=== PATIENT | female | born 1970 | race Caucasian/White ===

== ENCOUNTER 2017-05-28 16:59 | Emergency (ER) | payer OTHER, BC ==
[2017-05-28] MEDS ORDERED: HYDROmorphone 1 MG/ML Syringe IVPUSH ONE (17:58)
[2017-05-28] MEDS ORDERED: Sodium Chloride 0.9% 1,000 ML IV ONE (17:58)
[2017-05-28] MEDS ORDERED: Sodium Chloride 0.9% 10 ML Syringe FLUSH PRN (17:58)
[2017-05-28 18:33] LABS: CHLORIDE,CL 103 mmol/L (101-111); SODIUM,NA 140 mmol/L (135-145)
[2017-05-28] MEDS ORDERED: Gabapentin 300 MG Cap PO ONE (19:37)
[2017-05-28] MEDS ORDERED: Ibuprofen 600 MG Tab PO ONE (19:37)
[2017-05-28 19:48] VITALS: BP 115/67
--- NOTE | 2017-05-31 09:02 | EDM.PDOC ---
Scribed by Silvia Briones 05/28/17 [id number] for Mercedes Handy NP <Mercedes Handy - Last Filed: 05/28/17 18:52> ED HPI GENERAL MEDICAL PROBLEM - General Chief Complaint: Back Pain or Injury Stated Complaint: LOWER BACK SIDE Time Seen by Provider: 05/28/17 17:51 Source of Information: Reports: Patient, RN, RN Notes Reviewed History Limitations: Reports: No Limitations - History of Present Illness INITIAL COMMENTS - FREE TEXT/NARRATIVE: Patient presents with back pain that began today 05/03 progressively getting worse. Was low back pain--right flank wrapping around to abdomen. Has history of kidney stone. No fever, chills, nausea, vomiting or diarrhea. Onset: Today Location: Reports: Back Severity: Severe Improves with: Reports: None Worsens with: Reports: None Associated Symptoms: Reports: No Other Symptoms Lower Back Pain Score (Numeric/FACES): 8 - Related Data Allergies Allergy/AdvReac Type Severity Reaction Status Date / Time pseudoephedrine Allergy Cannot Verified 04/29/16 11:49 Remember Home Meds: Home Meds ALPRAZolam [Alprazolam ER] 0.5 mg PO DAILY PRN 06/16/14 [History] buPROPion [Wellbutrin XL] 150 mg PO DAILY 06/16/14 [History] Meloxicam 1 tab PO DAILY 05/28/17 [History] Past Medical History Genitourinary History: Reports: Urinary Incontinence, Other (See Below) (kidney stone) Other Genitourinary History: urethral mesh placed 2016 [employer] History: Reports: , Other (See Below) Other OB/BYN History: Hysterectomy Musculoskeletal History: Reports: Back Pain, Chronic Psychiatric History: Reports: Anxiety Endocrine/Metabolic History: Reports: Obesity/BMI 30+ - Past Surgical History GI Surgical History: Reports: Appendectomy, Cholecystectomy Female Surgical History: Reports: Hysterectomy, Other (See Below) (Bladder mesh April.) Social & Family History - Family History Family Medical History: Noncontributory - Tobacco Use Smoking Status *Q: Former Smoker Years of Tobacco use: 20 Used Tobacco, but Quit: No Second Hand Smoke Exposure: Yes - Caffeine Use Caffeine Use: Reports: Coffee, Soda - Alcohol Use Days Per Week of Alcohol Use: 0 - Recreational Drug Use Recreational Drug Use: No - Living Situation & Occupation Living situation: Reports: , with Spouse, with Family Occupation: Employed ED ROS GENERAL - Review of Systems Review Of Systems: ROS reveals no pertinent complaints other than HPI. ED EXAM,LOWER BACK PAIN/INJURY - Physical Exam Exam: See Below Exam Limited By: No Limitations General Appearance: Anxious, Other (tearful) Eye Exam: Bilateral Eye: Normal Inspection Ears: Normal External Exam, Normal Canal, Hearing Grossly Normal, Normal TMs Nose: Normal Inspection, Normal Mucosa, No Blood Throat/Mouth: Normal Inspection, Normal Lips, Normal Teeth, Normal Gums, Normal Oropharynx, Normal Voice, No Airway Compromise Head: Atraumatic, Normocephalic Neck: Normal Inspection, Supple, Non-Tender, Full Range of Motion Respiratory/Chest: No Respiratory Distress, Lungs Clear, Normal Breath Sounds, No Accessory Muscle Use, Chest Non-Tender Cardiovascular: Normal Peripheral Pulses, Regular Rate, Rhythm, No Edema, No Gallop, No JVD, No Murmur, No Rub GI/Abdominal: Other (tender) (Female) Exam: Deferred Rectal (Female) Exam: Deferred Back Exam: Normal Inspection, Full Range of Motion, NT Extremities: Normal Inspection, Normal Range of Motion, Non-Tender, No Pedal Edema, Normal Capillary Refill Neurological: Alert, Normal Mood/Affect, Normal Dorsiflexion, CN II-XII Intact, Normal Plantar Flexion, Normal Gait, Normal Reflexes, No Motor/Sensory Deficits , Oriented x 3 Psychiatric: Anxious, Tearful Skin Exam: Warm, Dry, Intact, Normal Color, No Rash Lymphatic: No Adenopathy Course - Vital Signs Last Recorded V/S: Last Vital Signs Temp 36.3 C 05/28/17 17:07 Pulse 80 05/28/17 17:07 Resp 20 05/28/17 17:07 BP 153/89 H 05/28/17 17:07 Pulse Ox 100 05/28/17 17:07 - Orders/Labs/Meds Orders: Active Orders 24 hr Category Date Time Status Peripheral IV Care [RC] . DIRECTED Care 05/28/17 17:58 Active Abdomen Pelvis wo Cont [CT] Urgent Exams 05/28/17 18:00 Taken Sodium Chloride 0.9% [Saline Flush] Med 05/28/17 17:58 Active 10 ml FLUSH ASDIRECTED PRN Peripheral IV Insertion Adult [OM.PC] Stat Oth 05/28/17 17:58 Ordered Medication Orders Sodium Chloride (Saline Flush) 10 ml FLUSH ASDIRECTED PRN PRN Reason: Keep Vein Open Last Admin: 05/28/17 18:10 Dose: 10 ml Labs: Laboratory Tests 05/28/17 05/28/17 05/28/17 Range/Units 17:11 18:10 18:10 WBC 9.7 (5.0-10.0) 10^3/uL RBC 4.55 (4.2-5.4) 10^6/uL Hgb 13.8 (12.0-16.0) g/dL Hct 41.6 (37.0-47.0) % MCV 91.4 (80-100) fL MCH 30.3 (27.0-34.0) pg MCHC 33.2 (33.0-35.0) g/dL Plt Count 394 (150-450) 10^3/uL Neut % (Auto) 55.0 (42.2-75.2) % Lymph % (Auto) 32.4 (20.5-50.1) % Curry % (Auto) 7.8 (2-8) % Eos % (Auto) 4.4 H (1.0-3.0) % Baso % (Auto) 0.4 (0.0-1.0) % Sodium 140 (135-145) mmol/L Potassium 4.1 (3.6-5.0) mmol/L Chloride 103 (101-111) mmol/L Carbon Dioxide 27.0 (21.0-31.0) mmol/L Anion Gap 14.1 BUN 16 (7-18) mg/dL Creatinine 0.8 (0.6-1.3) mg/dL Est Cr Clr Drug Dosing 84.01 mL/min Estimated GFR (MDRD) > 60 BUN/Creatinine Ratio 20.00 Glucose 99 (74-105) mg/dL Calcium 9.5 (8.4-10.2) mg/dl Total Bilirubin 0.5 (0.2-1.0) mg/dL AST 20 (10-42) IU/L ALT 22 (10-60) IU/L Alkaline Phosphatase 86 (42-121) IU/L Total Protein 7.4 (6.7-8.2) g/dl Albumin 4.3 (3.2-5.5) g/dl Globulin 3.1 Albumin/Globulin Ratio 1.39 Urine Color Yellow (YELLOW) Urine Appearance Slightly cloudy (CLEAR) Urine pH 6.5 (5.0-9.0) Ur Specific [place] 1.015 (1.005-1.030) Urine Protein Negative (NEGATIVE) Urine Glucose (UA) Negative (NEGATIVE) Urine Ketones Negative (NEGATIVE) Urine Occult Blood Trace-intact H (NEGATIVE) Urine Nitrite Negative (NEGATIVE) Urine Bilirubin Negative (NEGATIVE) Urine Urobilinogen 0.2 (0.2-1.0) mg/dL Ur Leukocyte Esterase Negative (NEGATIVE) Urine RBC 0-5 /HPF Urine WBC 0-5 (0-5/HPF) /HPF Ur Epithelial Cells Few /HPF Urine Bacteria Rare (0-FEW/HPF) /HPF Urine Mucus Rare /LPF Meds: Medications Generic Name Dose Route Start Last Admin Trade Name Freq PRN Reason Stop Dose Admin Sodium Chloride 10 ml 05/28/17 17:58 05/28/17 18:10 Saline Flush FLUSH 10 ml ASDIRECTED PRN Administration Keep Vein Open Discontinued Medications Generic Name Dose Route Start Last Admin Trade Name Freq PRN Reason Stop Dose Admin Gabapentin 300 mg 05/28/17 19:37 Neurontin PO 05/28/17 19:38 ONETIME ONE Hydromorphone HCl 0.5 mg 05/28/17 17:58 05/28/17 18:18 Dilaudid IVPUSH 05/28/17 17:59 0.5 mg ONETIME ONE Administration Sodium Chloride 1,000 mls @ 999 mls/hr 05/28/17 17:58 05/28/17 18:17 Normal Saline IV 05/28/17 18:58 999 mls/hr .BOLUS ONE Administration Ibuprofen 600 mg 05/28/17 19:37 Motrin PO 05/28/17 19:38 ONETIME ONE Departure - Departure Disposition: Home, Self-Care 01 Clinical Impression: Back pain Qualifiers: Back pain location: low back pain Chronicity: unspecified Back pain laterality : unspecified Sciatica presence: without sciatica Qualified Code(s): M54.5 - Low back pain - Discharge Information Forms: ED Department Discharge Additional Instructions: Rest Apply Moist Heat to area of pain TID X 15 mins. For Pain: MOTRIN 600mg TID W/ FOOD # 30 NEURONTIN 300mg BID # 20 F/U w/ PCP for re-evaluation <Celestino Flores - Last Filed: 05/28/17 19:40> Departure - Departure Time of Disposition: 19:34 Condition: Good I have read and agree with the documentation that has been completed regarding this visit. By signing this record, I attest that the documentation was completed in my physical presence and is an accurate record of the encounter.
== END 2017-05-28 19:55 | disposition home or self-care (01) ==
LOC: DL.ED 16:59
DX: M54.5 Low back pain (principal); Z88.8 Allergy status to other drugs, medicaments and biological substances; Z79.899 Other long term (current) drug therapy
CPT/HCPCS: 36415; 74176; 80053; 81001; 85025; 96361; 96374; 99284; A9270; J1170; J7030; J7050

== ENCOUNTER 2021-07-26 15:56 | Emergency (ER) | payer OTHER ==
[2021-07-26] MEDS ORDERED: Ondansetron 4 MG Tab.DIS PO ONE (15:57)
[2021-07-26] MEDS ORDERED: HYDROmorphone 1 MG/ML Syringe IVPUSH ONE (20:42)
[2021-07-26] MEDS ORDERED: Ondansetron 4 MG/2 ML SDV IVPUSH ONE (20:42)
[2021-07-26 21:28] LABS: ANION GAP 18.1 mEq/L (7-13); CHLORIDE,CL 100 mmol/L (98-107); SODIUM,NA 138 mmol/L (136-145)
[2021-07-26] MEDS ORDERED: Ondansetron 4 MG Tab.DIS ONE (22:54)
== END 2021-07-26 23:04 | disposition home or self-care (01) ==
LOC: DL.ED 15:56
DX: A08.4 Viral intestinal infection, unspecified (principal); E87.6 Hypokalemia; E66.9 Obesity, unspecified; Z68.32 Body mass index [BMI] 32.0-32.9, adult; Z87.891 Personal history of nicotine dependence; Z88.8 Allergy status to other drugs, medicaments and biological substances; Z79.899 Other long term (current) drug therapy; Z20.822 Contact with and (suspected) exposure to COVID-19
CPT/HCPCS: 36415; 80053; 81001; 83605; 83735; 85025; 86140; 87635; 96374; 96375; 99283; 99284; A9270; J1170; J2405; U0002

== ENCOUNTER 2023-04-23 23:31 | Emergency (ER) | payer BC, OTHER ==
[2023-04-24] MEDS ORDERED: fentaNYL 100 MCG/2 ML SDV IVPUSH ONE (00:03)
[2023-04-24] MEDS ORDERED: Ondansetron 4 MG/2 ML SDV ONE (00:54)
[2023-04-24] MEDS ORDERED: Ondansetron 4 MG/2 ML SDV IVPUSH ONE (00:57)
[2023-04-24 01:47] VITALS: BP 132/78; PULSE 88
== END 2023-04-24 01:43 | disposition home or self-care (01) ==
LOC: DL.ED 23:31
DX: S52.122A Displaced fracture of head of left radius, initial encounter for closed fracture (principal); E66.9 Obesity, unspecified; Z68.36 Body mass index [BMI] 36.0-36.9, adult; Z79.899 Other long term (current) drug therapy; Z88.8 Allergy status to other drugs, medicaments and biological substances; W19.XXXA Unspecified fall, initial encounter
CPT/HCPCS: 29105; 73070-LT; 73090-LT; 96374; 96375; 99282; 99283-25; J2405; J3010

== ENCOUNTER 2024-08-14 21:06 | Emergency (ER) | payer BC ==
[2024-08-14 21:23] VITALS: BP 163/103; PULSE 103
[2024-08-14] MEDS ORDERED: Sodium Chloride 0.9% 10 ML Syringe FLUSH PRN (21:24)
[2024-08-14] MEDS: Sodium Chloride 0.9% 1,000 ML IV ONE ×2 (21:34→23:56)
[2024-08-14 21:46] LABS: BASOPHILS PERCENT AUTO 0.4 % (0.0-1.0); EOSINOPHILS PERCENT AUTO 0.9 % (1.0-3.0); HEMATOCRIT 44.5 % (37.0-47.0); LYMPHOCYTES PERCENT AUTO 14.7 % (20.5-50.1); MEAN CORPUSCULAR HEMOGLOBIN 29.8 pg (27.0-34.0); MEAN CORPUSCULAR HGB CONC 33.7 g/dL (33.0-35.0); MEAN CORPUSCULAR VOLUME 88.5 fL (80-100); MONOCYTES PERCENT AUTO 12.9 % (2-8); NEUTROPHILS PERCENT AUTO 71.1 % (42.2-75.2); PLATELET COUNT,PLT 288 10^3/uL (150-450); RED BLOOD CELL COUNT 5.03 10^6/uL (4.2-5.4); WHITE BLOOD CELL COUNT,WBC 5.7 10^3/uL (5.0-10.0)
[2024-08-14] MEDS: Albuterol/Ipratropium 3.0-0.5 MG/3 ML Neb Soln NEB ONE (21:59)
[2024-08-14] MEDS: Benzonatate 100 MG Cap PO ONE (21:59)
[2024-08-14 22:03] LABS: A/G RATIO 0.9; ALBUMIN 3.5 g/dL (3.4-5.0); BILIRUBIN TOTAL 0.2 mg/dL (0.2-1.0); BUN/CREATININE RATIO 17.3 (No establ ref range); CALCIUM 8.8 mg/dL (8.5-10.1); CREATININE 0.75 mg/dL (0.55-1.02); EST CRCL DRUG DOSING (CG) 78.95 mL/min; MAGNESIUM 1.8 mg/dL (1.8-2.4); PROTEIN TOTAL,TP 7.3 g/dL (6.4-8.2)
[2024-08-14] MEDS: Acetaminophen 500 MG Tab PO ONE (22:29)
[2024-08-14] MEDS: GI Cocktail Oral Solution 30 ML PO ONE (22:31)
[2024-08-14] MEDS ORDERED: Iopamidol 612 MG/ML 100 ML Bottle IVPUSH ONE (22:51)
[2024-08-14] MEDS: Iopamidol 755 Mg/ML 100 ML Bottle IV ONE (22:51)
[2024-08-15] MEDS: Codeine/guaiFENesin 10-100 MG/5 ML Syrup 5 ML Cup PO ONE (00:22)
[2024-08-15] MEDS: methylPREDNISolone Sodium Succinate 40 MG/1 ML SDV IVPUSH ONE (01:28)
== END 2024-08-15 01:40 | disposition home or self-care (01) ==
LOC: DL.ED 21:06
DX: J10.1 Influenza due to other identified influenza virus with other respiratory manifestations (principal); E66.9 Obesity, unspecified; Z90.49 Acquired absence of other specified parts of digestive tract; Z90.710 Acquired absence of both cervix and uterus; Z79.899 Other long term (current) drug therapy; Z88.8 Allergy status to other drugs, medicaments and biological substances; Z68.33 Body mass index [BMI] 33.0-33.9, adult
CPT/HCPCS: 36415; 71046; 71275; 74177; 80053; 83690; 83735; 84484; 85025; 85379; 87428; 93005; 93010; 96361; 96374; 99284; A9270; J2919; J7030; Q9967; J7620-GY